=== PATIENT | male | born 2005 | race African-American/Black ===

== ENCOUNTER 2023-11-02 14:01 | Emergency (ER) | payer OTHER ==
[~2023-11-02] VITALS: Ht 180.3 cm; Wt 68.0 kg
[2023-11-02] MEDS: ACETAMINOPHEN 325 MG TAB PO ONE ×2 (14:42→14:45)
[2023-11-02] MEDS ORDERED: IBUPROFEN 100MG/5ML ORAL SUSP 100 MG/5 ML UD GT ONE (18:15)
[2023-11-02] MEDS ORDERED: cefTRIAXone SOD 1,000 MG VL IM ONE (18:15)
[2023-11-02] MEDS ORDERED: LIDOCAINE VISCOUS 2% 15ML UD PO ONE (18:15)
[2023-11-02] MEDS ORDERED: IBUPROFEN 100MG/5ML ORAL SUSP 100 MG/5 ML UD PO ONE (19:15)
[2023-11-02] MEDS ORDERED: LIDOCAINE 1% HCL (LOCAL ANESTH.) INJ 20ML MDV ONE (19:25)
[2023-11-02 19:57] LABS: Rapid Strep A Screen-Throat Positive
[2023-11-02] MEDS ORDERED: ONDANSETRON HCL 4 MG/2 ML VIAL IV ONE (20:30)
[2023-11-02] MEDS ORDERED: SODIUM CHLORIDE 0.9% 1,000 ML IVB ONE (20:30)
[2023-11-02] MEDS ORDERED: ONDANSETRON ODT 4 MG TAB PO ONE (20:45)
[2023-11-02] MEDS ORDERED: AUG875T PO (21:06)
[2023-11-02] MEDS ORDERED: NABU-72 PO (21:06)
[2023-11-02] MEDS ORDERED: LIDO2SOL26 MT (21:06)
[2023-11-02] MEDS ORDERED: BENZ100C97 PO (21:07)
[2023-11-02 22:52] VITALS: BP 135/88; PULSE 100; RESP 17; TEMP 97.7; O2SAT 98
== END 2023-11-02 22:54 | disposition home or self-care (01) ==
LOC: ER 14:01
DX: J02.0 Streptococcal pharyngitis (principal); J20.9 Acute bronchitis, unspecified; Z79.899 Other long term (current) drug therapy
CPT/HCPCS: 71045; 87880; 93005; 96372; 99285; J0696; J2001; Q0162